=== PATIENT | female | born 1950 | race Caucasian/White ===

== ENCOUNTER 2022-02-18 13:49 | Emergency (ER) | payer MEDICARE, BC ==
[~2022-02-18] VITALS: Ht 165.1 cm; Wt 53.2 kg
[2022-02-18 14:35] VITALS: BP 95/83
[2022-02-18] MEDS ORDERED: morphine 4 MG/ML inj SYRINge IM ONE (15:05)
[2022-02-18] MEDS ORDERED: IBUP-1986 PO (16:56)
== END 2022-02-18 17:13 | disposition home or self-care (01) ==
LOC: ER 13:50
DX: S52.91XA Unspecified fracture of right forearm, initial encounter for closed fracture (principal); Z88.0 Allergy status to penicillin; Z88.6 Allergy status to analgesic agent; Z88.5 Allergy status to narcotic agent; Z79.1 Long term (current) use of non-steroidal anti-inflammatories (NSAID); W18.39XA Other fall on same level, initial encounter; Y93.89 Activity, other specified; Y92.89 Other specified places as the place of occurrence of the external cause; Y99.8 Other external cause status
CPT/HCPCS: 29125; 73130; 99283; A4565; A6449